=== PATIENT | male | born 1985 | race Caucasian/White ===

== ENCOUNTER 2020-05-27 02:05 | Emergency (ER) | payer BC, SELFPAY ==
[2020-05-27 02:07] VITALS: BP 125/82; PULSE 106; RESP 16; TEMP 36.9; O2SAT 96; BMI 23.7
--- NOTE | 2020-05-27 02:25 | HMH.EDGENADL ---
ED Disposition Clinical Impression: Medical clearance for incarceration Disposition: Home, Self-Care Condition on Discharge: Good Referrals: PCP,No [Primary Care Provider] - - Critical Care Critical Care Time: No Attestation: On , the high probability of a clinically significant, sudden or life threatening deterioration of the following system(s) required my full and direct attention, intervention and personal management. The time I documented below is in addition to time spent performing reported procedures but includes the following listed in this critical care notation. Medical Decision Making - Medical Records Medical records reviewed: Yes: I reviewed the patient's medical records. - Eric Inquiry Pt receiving controlled substance: No Vital Signs: 05/27/20 02:07 Temperature 98.5 F Temperature Source Oral Pulse Rate [Left Radial] 106 H Respiratory Rate 16 Blood Pressure [Right Arm] 125/82 Blood Pressure Mean [Right Arm] 96 Blood Pressure Source [Right Arm] Automatic Cuff Blood Pressure Position [Right Arm] Sitting 02 Sat by Pulse Oximetry 96 Oxygen Delivery Method Room Air Medical Decision Narrative: Patient is a 34-year-old male with a history of IV drug use who presents the emergency department today for medical clearance after being arrested. Ambulatory on his leg. Reassuring exam. Vital signs appropriate. Overall exam well-appearing. No indication for imaging or labs. Cleared for long-term. General Adult HPI - General Chief complaint: Medical Clearance Stated complaint: Medical Clearance Time Seen by Provider: 05/27/20 02:25 Mode of Arrival: Ambulatory Limitations: No Limitations Description of Symptoms (Recalled from ER Triage Doc. by RN): pt brought in for medical clearence. pt complains of left twisted leg and stated he feels like he has a fever. pt reports using heroine a couple hours ago - History of Present Illness HPI narrative: Patient has history of heroin use, hep C. Patient did heroin recently and was then about to be arrested. He ran from the police and was tased. Fell on his left side. Then told the police he had had a fever off and on for several days. Patient also complained of left leg pain that he fell on. Patient walked into the emergency department without a limp. - Related Data Home Medications Medication Instructions Recorded Confirmed No Known Home Medications 08/02/18 10/13/18 Allergies Allergy/AdvReac Type Severity Reaction Status Date / Time No Known Allergies Allergy Verified 08/02/18 01:17 [facility] History - Hepatitis A Screen Drug use history?: Yes High risk sexual behaviors?: No History of sexually transmitted infection?: No Currently employed?: No Childcare worker?: No Do you have indoor plumbing?: Yes Do you have electricity?: Yes Attestation statement:: This patient has been screened for Hepatitis A risk factors. Medical History: Denies:: Cancer, Diabetes Mellitus Type 1, Diabetes Mellitus Type 2, MRSA Amputation: No - Social History Smoking Status: Current every day smoker Tobacco Type: cigarettes # Packs/Day (cigarettes): 1 Alcohol Intake: never Substance Use Type: heroin, methamphetamine Occupational Status: unemployed ROS Obtained: No All systems reviewed & no additional complaints Physical Exam - General General appearance: alert, in no apparent distress - Respiratory Respiratory exam: Present: normal lung sounds bilaterally. Absent: respiratory distress - Cardiovascular Cardiovascular exam: Present: regular rate, normal rhythm. Absent: JVD - Abdominal Exam Abdominal exam: Present: soft, normal bowel sounds. Absent: distention, tenderness, guarding - Extremities Exam Extremities exam: Present: other (Hyperalgesia over the left thigh.) - Neurological Exam Neurological exam: Present: alert, oriented X3
[2020-05-27 02:38] VITALS: BP 127/82; PULSE 111; RESP 16; TEMP 36.9; O2SAT 98
== END 2020-05-27 02:39 | disposition home or self-care (01) ==
PROVIDERS: Emergency Provider Emergency Medicine
DX: M79.605 Pain in left leg (principal); F19.10 Other psychoactive substance abuse, uncomplicated
CPT/HCPCS: 99282

== ENCOUNTER 2021-01-20 21:50 | Emergency (ER) | payer BC, SELFPAY ==
[2021-01-20 21:56] VITALS: BP 130/72; PULSE 85; RESP 16; TEMP 36.6; O2SAT 97; BMI 26.0
[2021-01-20 22:00] VITALS: BP 127/74; PULSE 83; O2SAT 96
[2021-01-20 22:30] VITALS: BP 129/67; PULSE 80; O2SAT 97
--- NOTE | 2021-01-20 22:47 | CT_ITS ---
PROCEDURE INFORMATION: Exam: CT Orbits Without Contrast Exam date and time: 01/20/2021 10:47 PM Age: 35 years old Clinical indication: Injury or trauma; Puncture; Orbit/periorbital; With residual foreign body; Patient HX: Metallic foreign body to left eye, ; additional info: Metal, foreign body TECHNIQUE: Imaging protocol: Computed tomography images of the orbits without contrast. Radiation optimization: All CT scans at this facility use at least one of these dose optimization techniques: automated exposure control; mA and/or kV adjustment per patient size (includes targeted exams where dose is matched to clinical indication); or iterative reconstruction. COMPARISON: No relevant prior studies available. FINDINGS: Orbital cavity: Orbits are normal. Globes are unremarkable. Paranasal sinuses: There are mucous retention cysts in bilateral maxillary sinus No air-fluid levels. Bones/joints: No acute fracture. Soft tissues: No significant facial soft tissue swelling. IMPRESSION: No acute findings. No radiopaque foreign body within the orbits .
--- NOTE | 2021-01-20 22:48 | HMH.EDGENADL ---
ED Disposition Clinical Impression: Corneal rust ring of left eye Corneal abrasion, left Qualifiers: Encounter type: initial encounter Qualified Code(s): S05.02XA - Injury of conjunctiva and corneal abrasion without foreign body, left eye, initial encounter Disposition: Home, Self-Care Condition on Discharge: Fair Instructions: DI for Corneal Foreign Body-Eye, DI for Corneal Abrasion Additional Instructions: You have been evaluated for orbital foreign body, metal. Diagnosed with a corneal abrasion and rust ring. Please call [facility] first thing in the morning for close follow-up. . Use erythromycin ointment. Take anti-inflammatories, ibuprofen or Motrin for pain. Return to the emergency department at once for any new or worsening symptoms, vision changes or other concerns. Prescriptions: Erythromycin Base [Erythromycin 1gm opth ointment] 1 gm OP QID 5 Days #20 oint...g. Transmission Status: Pending to [id number] Referrals: Hunter Paul [Primary Care Provider] - Time of Disposition: 00:46 - Critical Care Critical Care Time: No Attestation: On 01/20/21, the high probability of a clinically significant, sudden or life threatening deterioration of the following system(s) required my full and direct attention, intervention and personal management. The time I documented below is in addition to time spent performing reported procedures but includes the following listed in this critical care notation. Medical Decision Making - Medical Records Medical records reviewed: Yes: I reviewed the patient's medical records. - Eric Inquiry Pt receiving controlled substance: No Vital Signs: 01/20/21 21:56 01/20/21 22:00 01/20/21 22:30 Temperature 97.8 F Temperature Source Oral Pulse Rate 83 80 Pulse Rate [Left Brachial] 85 Respiratory Rate 16 Blood Pressure 127/74 129/67 Blood Pressure [Right Arm] 130/72 Blood Pressure Mean [Right Arm] 91 Blood Pressure Source [Right Arm] Automatic Cuff 02 Sat by Pulse Oximetry 97 96 97 Oxygen Delivery Method Room Air 01/20/21 23:00 01/20/21 23:30 01/21/21 00:00 Temperature Temperature Source Pulse Rate 80 64 72 Pulse Rate [Left Brachial] Respiratory Rate Blood Pressure 124/70 106/71 L 119/68 Blood Pressure [Right Arm] Blood Pressure Mean [Right Arm] Blood Pressure Source [Right Arm] 02 Sat by Pulse Oximetry 96 100 92 L Oxygen Delivery Method - CT Data CT Scan: Other Time Received: 00:[address] Reviewed: Yes: I have reviewed the patient's CT results, I have viewed the radiologist's interpretation Preliminary Findings: Normal/NAD Findings Narrative: CT orbits FINDINGS: Orbital cavity: Orbits are normal. Globes are unremarkable. Paranasal sinuses: There are mucous retention cysts in bilateral maxillary sinus No air-fluid levels. Bones/joints: No acute fracture. Soft tissues: No significant facial soft tissue swelling. IMPRESSION: No acute findings. No radiopaque foreign body within the orbits Medical Decision Narrative: In summary this is a 35-year-old male presenting to the emergency department with foreign body sensation in the left eye. Patient clinically stable on arrival. Vital signs within normal limits. He has 2 obvious metallic foreign bodies present on the front of the eye. Concern for metal and rest. Tetracaine instilled. Patient had significant improvement in his pain. 1 metal foreign body able to be removed with a cotton tip applicator. The other one required a small needle. There is a rust ring. Left eye irrigated copiously. Erythromycin ointment applied. Patient instructed to call [facility] first thing in the morning. He needs follow-up within 24 to 48 hours. Patient expressed understanding. Stable for discharge. General Adult HPI - General Chief complaint: Eye Problems Stated complaint: AO 01/20 1000 FB in Left eye Time Seen by Provider:
[2021-01-20 23:00] VITALS: BP 124/70; PULSE 80; O2SAT 96
[2021-01-20 23:30] VITALS: BP 106/71; PULSE 64; O2SAT 100
[2021-01-21] VITALS: BP 119/68; PULSE 72; O2SAT 92
[2021-01-21 00:59] VITALS: BP 119/68; PULSE 72; RESP 16; TEMP 36.6; O2SAT 100
== END 2021-01-21 01:00 | disposition home or self-care (01) ==
PROVIDERS: Emergency Provider Emergency Medicine; PCP Pediatrics
DX: T15.02XA Foreign body in cornea, left eye, initial encounter (principal); T15.12XA Foreign body in conjunctival sac, left eye, initial encounter; W22.8XXA Striking against or struck by other objects, initial encounter; Y92.89 Other specified places as the place of occurrence of the external cause
CPT/HCPCS: 65205; 70480; 99282

== ENCOUNTER 2021-07-05 13:41 | Emergency (ER) | payer BC, SELFPAY ==
[2021-07-05 13:55] VITALS: BP 148/89; PULSE 101; RESP 19; TEMP 37.1; O2SAT 99; BMI 26.0
--- NOTE | 2021-07-05 14:46 | HMH.EDUTC ---
[facility] [place] Clinical Impression: Viral syndrome Pharyngitis Qualifiers: Pharyngitis/tonsillitis etiology: unspecified etiology Qualified Code(s): J02.9 - Acute pharyngitis, unspecified Disposition: Home, Self-Care Condition on Discharge: Good Instructions: DI for Viral Syndrome Additional Instructions: Drink plenty of fluids. Take tylenol or ibuprofen for pain or fever. Take the medications as directed. Follow up with your regular doctor. GO TO THE ER FOR ANY WORSENING SYMPTOMS Prescriptions: Azithromycin [Z-Nahid 250mg Tab*] 250 mg PO UD DOSE PK #6 tab Transmission Status: Received by [id number] Referrals: Provider,Referral, [Primary Care Provider] - Forms: Work/School Release Time of Disposition: 14:51 Medical Decision Making - Medical Records Medical records reviewed: No: I reviewed the patient's medical records. - Eric Inquiry Pt receiving controlled substance: No Vital Signs: 07/05/21 13:55 07/05/21 14:55 Temperature 98.8 F 98.8 F Temperature Source Oral Pulse Rate 101 H Pulse Rate [Right Brachial] 101 H Respiratory Rate 19 19 Blood Pressure 148/89 H Blood Pressure [Right Arm] 148/89 H Blood Pressure Mean [Right Arm] 108 Blood Pressure Source [Right Arm] Manual Cuff/ Doppler Blood Pressure Position [Right Arm] Sitting 02 Sat by Pulse Oximetry 99 Oxygen Delivery Method Room Air - Lab Data Lab results reviewed: Yes: I reviewed the patient's lab results. [facility] [place] - General Stated complaint: sore throat, body aches, congestion Time Seen by Provider: 07/05/21 14:46 Mode of Arrival: Ambulatory Source of Information: Patient Limitations: No Limitations Description of Symptoms (Recalled from Triage Doc. by RN): PATIENT C/O FEVER, BODY ACHES, AND SORE THROAT. HE STATES HE IS FEELING BETTER AND IS NEEDING A WORK NOTE HEENT Symptoms (Recalled from RN notes): Yes Resp Symptoms (Recalled from RN notes): No Skin Symptoms (Recalled from RN notes): No MS Symptoms (Recalled from RN notes): No Functional Status (Recalled from RN notes): WNL - History of Present Illness Provider Complaint: He has been feeling bad for the past 3 days. He has had a sore throat, nausea and sinus drainage. He is feeling almost completely better, but he was too sick this morning to go to work so he needed to be tested for covid. - Related Data Previous Rx's Medication Instructions Recorded Azithromycin [Z-Nahid 250mg Tab*] 250 mg PO UD DOSE PK #6 tab 07/05/21 Allergies Allergy/AdvReac Type Severity Reaction Status Date / Time No Known Allergies Allergy Verified 08/02/18 01:17 - Worker's Comp Is this a Worker's Comp case?: No [facility] History - Hepatitis A Screen Drug use history?: No High risk sexual behaviors?: No History of sexually transmitted infection?: No Currently employed?: No Childcare worker?: No Do you have indoor plumbing?: Yes Do you have electricity?: Yes Attestation statement:: This patient has been screened for Hepatitis A risk factors. I have reviewed the patient's past medical history: Yes Medical History: Denies:: Cancer, Diabetes Mellitus Type 1, Diabetes Mellitus Type 2, MRSA Amputation: No - Social History Smoking Status: Current every day smoker Tobacco Type: cigarettes # Packs/Day (cigarettes): 1 Alcohol Intake: never Substance Use Type: heroin, methamphetamine Occupational Status: unemployed ROS Obtained: Yes All systems reviewed & no additional complaints - Constitutional Constitutional: Reports as per HPI - Eyes Eyes: Denies eye discharge - ENT Ears, Nose, Mouth, and Throat: Reports as per HPI - Cardiovascular Cardiovascular: Denies chest pain - Respiratory Respiratory: Denies chest congestion, Reports cough, Denies dyspnea, Denies stridor, Denies wheezing - Gastrointestinal Gastrointestingal: Reports: nausea. Denies: abdominal pain, diarrhea, vomiting - Musculoskeletal Musculoskeletal: Denies joint
[2021-07-05 14:55] VITALS: BP 148/89; PULSE 101; RESP 19; TEMP 37.1; O2SAT 99
== END 2021-07-05 14:58 | disposition home or self-care (01) ==
PROVIDERS: Emergency Provider Nurse Practitioner Family
DX: J02.9 Acute pharyngitis, unspecified (principal); B34.9 Viral infection, unspecified; F17.210 Nicotine dependence, cigarettes, uncomplicated
CPT/HCPCS: 99202; G0463

== ENCOUNTER 2022-07-04 13:43 | Emergency (ER) | payer BC, SELFPAY ==
[2022-07-04 14:08] VITALS: BP 123/60; PULSE 91; RESP 16; TEMP 36.6; O2SAT 96; BMI 25.9
[2022-07-04 15:52] VITALS: BP 0/0; PULSE 0; RESP 0; TEMP -17.7; TEMP 0
== END 2022-07-04 15:53 | disposition left against medical advice (07) ==
LOC: ER 14:11 → UTC 14:12
PROVIDERS: Emergency Provider Nurse Practitioner Family; PCP Family Medicine
DX: Z53.21 Procedure and treatment not carried out due to patient leaving prior to being seen by health care provider (principal)

== ENCOUNTER 2023-05-11 18:10 | Emergency (ER) | payer BC, SELFPAY ==
[2023-05-11 18:11] VITALS: BP 104/67; PULSE 72; RESP 16; TEMP 36.1; O2SAT 100; BMI 25.7
--- NOTE | 2023-05-11 18:30 | XR_ITS ---
PROCEDURE INFORMATION: Exam: XR Left Knee Exam date and time: 05/11/2023 6:26 PM Age: 37 years old Clinical indication: Injury or trauma; Fall; Blunt trauma; Knee; Left; Additional info: Fall, pain TECHNIQUE: Imaging protocol: Radiologic exam of the left knee. Views: 3 views. COMPARISON: No relevant prior studies available. FINDINGS: Bones/joints: Normal. Soft tissues: Normal. IMPRESSION: No acute findings.
--- NOTE | 2023-05-11 18:30 | XR_ITS ---
PROCEDURE INFORMATION: Exam: XR Left Ankle Exam date and time: 05/11/2023 6:28 PM Age: 37 years old Clinical indication: Injury or trauma; Fall; Blunt trauma; Ankle; Left; Additional info: Fall, injury TECHNIQUE: Imaging protocol: Radiologic exam of the left ankle. Views: 3 or more views. COMPARISON: CR XR KNEE LT 3V 05/11/2023 6:26 PM FINDINGS: Bones/joints: Normal. Soft tissues: Normal. IMPRESSION: No acute findings.
--- NOTE | 2023-05-11 18:39 | XR_ITS ---
PROCEDURE INFORMATION: Exam: XR Left Tibia and Fibula Exam date and time: 05/11/2023 6:35 PM Age: 37 years old Clinical indication: Injury or trauma; Fall; Blunt trauma; Lower leg; Left; Additional info: Tibiotalar joint pain TECHNIQUE: Imaging protocol: Radiologic exam of the left tibia and fibula. Views: 2 views. COMPARISON: CR XR FOOT LT MIN 3V 05/11/2023 6:34 PM FINDINGS: Bones/joints: Normal. Soft tissues: Normal. IMPRESSION: No acute findings.
--- NOTE | 2023-05-11 18:39 | XR_ITS ---
PROCEDURE INFORMATION: Exam: XR Left Foot Exam date and time: 05/11/2023 6:34 PM Age: 37 years old Clinical indication: Injury or trauma; Fall; Blunt trauma; Foot; Left; Additional info: Tibiotalar joiint pain TECHNIQUE: Imaging protocol: Radiologic exam of the left foot. Views: 3 or more views. COMPARISON: CR XR ANKLE LT MIN 3V 05/11/2023 6:28 PM FINDINGS: Bones/joints: Normal. Soft tissues: Normal. IMPRESSION: No acute findings.
--- NOTE | 2023-05-11 18:46 | HMH.EDGENADL ---
Discharge Plan Disposition Patient Disposition: Home, Self-Care Prescriptions Prescriptions: No Action azithromycin 250 MG tablet 250 mg PO UD DOSE PK Qty: 6 0RF Rx Instructions: Take two (2) tablets today, then one (1) tablet days #2 thru #5 Referrals Follow up/Referrals: Provider,Referral, [Primary Care Provider] - See instructions Activity Restrictions/Add. Instructions Additional Instructions/Restrictions: Call your family doctor to establish care for this visit to the emergency department and schedule follow-up within 48 hours to ensure improvement. If you have any worsening of your condition or any other concerning signs or symptoms, return to the emergency department or your primary care doctor for further evaluation. Take Tylenol 1000 mg every 6 hours (4 times daily) and ibuprofen 400 mg every 6 hours (4 times daily) as needed with food and water to prevent GI upset and kidney damage. Clinical Impressions Clinical Impression: Ankle sprain, Knee sprain Discharge ED Provider: Ronnie Kennedy General Adult HPI General Chief complaint: PAIN Stated complaint: AO 05/11 fall, left foot and knee pain Time Seen by Provider: 05/11/23 18:15 Mode of Arrival: Wheelchair Limitations: No Limitations Description of Symptoms (Recalled from ER Triage Doc. by RN): Pt c/o L ankle pain and L knee pain. Pt reports fall approx 3-4 feet from a step ladder while trying to get down. Pt reports his foot turned backwards and his knee popped . Pt reports he thinks his knee popped out of place. + pms. History of Present Illness HPI narrative: 37-year-old male no relevant medical history presenting with left knee and ankle pain. Patient states he stepped incorrectly off a stepladder and turned his foot backward. His knee popped. He has been trying to bear weight, but has significant pain with bearing weight since that time. Vomiting secondary to pain intolerance. No deformity, numbness, weakness, tingling, or any outward signs of injury. No other injury sustained. Related Data Previous Rx's Medication Instructions Recorded azithromycin 250 mg tablet 250 mg PO UD DOSE PK #6 tabs 07/05/21 Allergies Allergy/AdvReac Type Severity Reaction Status Date / Time No Known Allergies Allergy Verified 08/02/18 01:17 [facility] Disclaimer: The information contained in this section may have been updated after the patient was seen, as this information can be updated by other users. Social History Smoking Status: Current every day smoker tobacco type: cigarettes packs per day: 1 alcohol intake: never substance use type: heroin and methamphetamine current occupational status: unemployed Travel in the last 8 weeks: None ROS Obtained: Yes All systems reviewed & no additional complaints except as documented Physical Exam General General appearance: alert and in no apparent distress Head Head exam: atraumatic and normocephalic Eye Eye exam: Present normal appearance, PERRL and EOMI ENT ENT exam: Present mucous membranes moist Neck Neck exam: Present normal inspection, full ROM and trachea midline Respiratory Respiratory exam: Absent respiratory distress, wheezes, stridor, accessory muscle use or prolonged expiratory phase Cardiovascular Cardiovascular exam: Present normal rhythm Abdominal Exam Abdominal exam: Present soft; Absent distention, tenderness, guarding, rebound, rigidity or normal bowel sounds Extremities Exam Extremities exam: Present other (Left lower extremity structurally intact including ACL, PCL, MCL, LCL, patellar ligament and tendon. No evidence of effusion. Maximal tenderness proximal tibia and joint space medially. Patient also has tenderness medial malleolus and talus. No outward signs of injury); Absent edema Neurological Exam Neurological exam: Present alert, oriented X3, CN II-XII intact and normal gait; Absent motor sensory deficit Skin Skin exam: Present warm and dry; Absent dionicio
[2023-05-11 19:26] VITALS: BP 110/78; PULSE 79; RESP 16; TEMP 36.7; O2SAT 100
== END 2023-05-11 19:38 | disposition home or self-care (01) ==
PROVIDERS: Emergency Provider Emergency Medicine
DX: S93.402A Sprain of unspecified ligament of left ankle, initial encounter (principal); S83.92XA Sprain of unspecified site of left knee, initial encounter; R11.2 Nausea with vomiting, unspecified; F17.210 Nicotine dependence, cigarettes, uncomplicated; W11.XXXA Fall on and from ladder, initial encounter
CPT/HCPCS: 73562; 73590; 73610; 73630; 96372; 99284

== ENCOUNTER 2024-10-06 21:28 | Emergency (ER) | payer MEDICAID, SELFPAY ==
[2024-10-06 21:52] VITALS: BP 118/71; PULSE 104; RESP 20; TEMP 37.6; O2SAT 100; BMI 26.0
--- NOTE | 2024-10-06 22:09 | CT_ITS ---
PROCEDURE INFORMATION: Exam: CT Left Upper Extremity With Contrast, Forearm Exam date and time: 10/06/2024 10:35 PM Age: 38 years old Clinical indication: Pain; Lower or forearm; Left; Spider bite; Additional info: Concern for deep abscess TECHNIQUE: Imaging protocol: Computed tomography of the left upper extremity with contrast. Exam focused on the forearm. Radiation optimization: All CT scans at this facility use at least one of these dose optimization techniques: automated exposure control; mA and/or kV adjustment per patient size (includes targeted exams where dose is matched to clinical indication); or iterative reconstruction. Contrast material: ISOVUE; Contrast volume: 75 ml; Contrast route: IV; COMPARISON: No relevant prior studies available. FINDINGS: Bones/joints: The osseous structures are normal. Soft tissues: There is a subcutaneous abscess of the mid to distal forearm dorsomedially with overlying contour abnormality of the skin surface. The abscess measures approximately 19 x 13 x 24 mm. Diffuse subcutaneous edema is noted throughout the forearm extending distally into the hand and proximally into the upper arm. No focal underlying muscular abnormality is evident. IMPRESSION: Focal subcutaneous abscess of the dorsomedial mid to distal forearm measuring approximately 19 x 13 x 24 mm. Diffuse subcutaneous edema of the forearm.
[2024-10-06 22:12] LABS: Albumin Level 4.3 g/dl (3.5-5.0); Chloride 103 mmol/L (98-107); Potassium 3.5 mmoL/L (3.5-5.1); Sodium 138 mmol/L (136-145)
[2024-10-06 22:15] LABS: Alanine Aminotransferase 21 U/L (12-78); Albumin/Globulin Ratio 1.5 (1.1-1.8); Alkaline Phosphatase 70 U/L (38-126); Anion Gap 9.5 mEq/L (5-15); Aspartate Amino Transferase 25 U/L (17-59); Bilirubin,Total 0.6 mg/dl (0.2-1.3); Blood Urea Nitrogen 16 mg/dl (9-20); Calcium 8.7 mg/dl (8.4-10.2); Carbon Dioxide 29 mmol/L (22.0-30.0); Creatine Kinase 164 U/L (55-170); Creatinine Clearance Estimated 111 mL/min (50-200); Estimated Glomerular Filt Rate 76 ml/min (>60); GFR (African American) 92 ML/MIN (>60); Globulin 2.9 g/dL (1.3-3.2); Glucose 100 mg/dl (74-100); Lactic Acid 1.5 mmol/L (0.7-2.1); Total Protein,Serum 7.2 g/dl (6.3-8.2)
--- NOTE | 2024-10-06 22:17 | HMH.EDGENADL ---
Discharge Plan Disposition Patient Disposition: Admitted Chief Complaint: Skin/Abscess/Foreign Body Prescriptions Prescriptions: No Action azithromycin 250 MG tablet 250 mg PO UD DOSE PK Qty: 6 0RF Rx Instructions: Take two (2) tablets today, then one (1) tablet days #2 thru #5 Referrals Follow up/Referrals: Provider,Referral, [Primary Care Provider] - See instructions Clinical Impressions Clinical Impression: Cellulitis and abscess of upper arm and forearm Instructions Patient Instructions: DI for Skin Abscess Print Language Print Language: Indonesian Discharge ED Provider: Ronnie Kennedy General Adult HPI General Chief complaint: Skin/Abscess/Foreign Body Stated complaint: ? spider bite 3 days ago left forearm Time Seen by Provider: 10/06/24 21:32 Mode of Arrival: Ambulatory Source of Information: Patient Description of Symptoms (Recalled from ER Triage Doc. by RN): Pt to ED with c/o spider bite to left forearm. Pt reports he was bit Thursday, and at the time was a small bump on his arm. Since thursday, the bump has grown and left arm is warm, red, and swollen to the upper arm. Pus noted. Pt reports he lanced the potential abcess at 0000 last night, and a large amount of pus came out. History of Present Illness HPI narrative: Please note that above description of symptoms, in this electronic medical record under categorization of recalled from ER triage doctor by RN are reflective of an initial nursing assessment, however, is not reflective of my full history and physical exam that was personally taken and clarified. Consequentially, this preceding description of symptoms, which may include the patient's categorized chief complaint in the EMR, do not reflect my personal clinical impression, and the ultimate description of history of present illness and patient stated complaints should be deferred to this section of the note. Unless stated otherwise or congruent with this section of the note, additional signs, symptoms, or incongruence should be interpreted as inaccurate with my clinical impression. Related Data Previous Rx's ?Medication ?Instructions ?Recorded azithromycin 250 mg tablet 250 mg PO UD DOSE PK #6 tabs 07/05/21 Allergies Allergy/AdvReac Type Severity Reaction Status Date / Time No Known Allergies Allergy Verified 08/02/18 01:17 [facility] Disclaimer: The information contained in this section may have been updated after the patient was seen, as this information can be updated by other users. Social History Smoking Status: Current every day smoker tobacco type: cigarettes packs per day: 1 alcohol intake: never substance use type: heroin and methamphetamine current occupational status: unemployed Travel in the last 8 weeks: None Have you lived/traveled outside [place] in past 30 days?: No Contact w/someone who lives/traveled outside [place] past 30 days?: No Exposure to someone with infectious disease in past 14 days?: No Do you have a fever (greater than 100.4 F or 38 C)?: No Have you tested positive for COVID-19: No Exposed to someone with COVID-19 in past 14 days?: No Do you have a sore throat?: No Do you have a cough?: No Do you have any weakness?: No Do you have any diarrhea?: No Are you experiencing any unusual bleeding?: No Do you have any muscle aches/pain?: No Do you have any abdominal pain?: No Are you experiencing loss of taste or smell?: No Other Medical History Have you received the Flu Vaccine for this season: No Have you received the Pneumonia Vaccine: No ROS Obtained: Yes All systems reviewed & no additional complaints except as documented Physical Exam General General appearance: alert Head Head exam: atraumatic and normocephalic Eye Eye exam: Present normal appearance, PERRL and EOMI Neck Neck exam: Present normal inspection, full ROM and trachea midline Respiratory Respiratory exam: Absent respiratory distress, wheezes, stridor, accessory muscle use or prolonged expiratory phase Cardiovascular Cardiovascular exam: Present other (Pulses equal symmetric in upper and lower extremities) Abdominal Exam Abdominal exam: Present soft; Absent distention, tenderness or pulsatile mass Extremities Exam Extremities exam: Present edema and other (Left forearm, patient has area of ulceration and natalia purulence. Indurated circular area about 8 cm in diameter. Erythematous, tender. Patient also has erythema and edema extending up to just proximal to the elbow and distally into the hand.) Neurological Exam Neurological exam: Present alert, oriented X3 and CN II-XII intact; Absent motor sensory deficit Skin Skin exam: Present warm and dry; Absent diaphoresis or erythema Medical Decision Making Medical Records Medical records reviewed: Yes I reviewed the patient's medical records. Screening: Per USPSTF and CDC recommendations, given the prevalence of disease in our region, it is our hospital?s policy to screen for HIV and viral Hepatitis for all patients aged 18 and over and those with ongoing risk factors. Eric Inquiry Pt receiving controlled substance: No Eric was queried for this patient: No Vital Signs: 10/06/24 21:52 Temperature 99.6 F Temperature Source Oral Pulse Rate [Left Radial] 104 H Respiratory Rate 20 Blood Pressure [Right Arm] 118/71 Blood Pressure Mean [Right Arm] 86 Blood Pressure Source [Right Arm] Automatic Cuff Blood Pressure Position [Right Arm] Sitting 02 Sat by Pulse Oximetry 100 Oxygen Delivery Method Room Air Lab Data Lab Results 10/06/24 21:56: WBC 11.5 H, RBC 4.81, Hgb 14.6, Hct 43.1, MCV 89.6, MCH 30.4, MCHC 33.9, RDW 12.1, Plt Count 272, MPV 8.7, Neut % (Auto) 75.2, Lymph % (Auto) 13.5, Beckham % (Auto) 8.4, Eos % (Auto) 2.1, Baso % (Auto) 0.5, Neut # (Auto) 8.6 H, Lymph # (Auto) 1.6, Beckham # (Auto) 1.0, Eos # (Auto) 0.2, Baso # (Auto) 0.1, Sodium 138, Potassium 3.5, Chloride 103, Carbon Dioxide 29, Anion Gap 9.5, BUN 16, Creatinine 1.10, Estimated Creat Clear 111, Estimated GFR 76, Est GFR ( Amer) 92, Glucose 100, Lactate 1.5, Calcium 8.7, Total Bilirubin 0.6, AST 25, ALT 21, Alkaline Phosphatase 70, Total Creatine Kinase 164, Total Protein 7.2, Albumin 4.3, Globulin 2.9, Albumin/Globulin Ratio 1.5 10/06/24 21:56 10/06/24 21:56 Orders (Tests/Meds): ED MEDICATIONS Generic Name Dose Route Start Last Admin Trade Name Freq PRN Reason Stop Dose Admin Vancomycin/PEG/NADA/Lysine/Water 1.5 gm in 300 mls @ 150 mls/hr 10/06/24 23:15 Vancomycin 1.5gm/300ml (Peg) Premix IV 10/07/24 01:14 ONCE ONE Miscellaneous 1 each 10/06/24 23:15 Vancomycin Consult Request NOTAPPLIC 11/05/24 23:14 [facility] Sodium Chloride 10 ml 10/06/24 22:40 10/06/24 22:41 Sodium Chloride 0.9% 10ml Syr (Rad Only) IV 11/05/24 22:39 10 ml NEEDED PRN Administration Maintain IV Site Discontinued Medications Generic Name Dose Route Start Last Admin Trade Name Sandhya PRN Reason Stop Dose Admin Acetaminophen 1,000 mg 10/06/24 22:20 10/06/24 22:24 Acetaminophen 500mg Tab PO 10/06/24 22:21 1,000 mg ONCE ONE Administration Iopamidol 75 ml 10/06/24 22:40 10/06/24 22:41 Iopamidol-370 (76%);100ml Bottle IV 10/06/24 22:41 75 ml ONCE ONE Administration Ketorolac Tromethamine 15 mg 10/06/24 22:20 10/06/24 22:25 Ketorolac 30mg/Ml Vial IV 10/06/24 22:21 15 mg ONCE ONE Administration ORDERS Category Date Time Status CT forearm LT w con Stat Cat Scan 10/06/24 22:09 Taken POCUS Point of Care (ER Only) Stat Exams 10/06/24 22:01 Completed CBC w/Auto Diff [Complete Blood Count Auto Diff] Stat Lab 10/06/24 21:56 Completed CK [Creatine Kinase] Stat Lab 10/06/24 21:56 Completed CMP [Comprehensive Metabolic Panel] Stat Lab 10/06/24 21:56 Completed HIV Combo Stat Lab 10/06/24 21:56 Received Hepatitis C Ab Qual. W/ RFX Stat Lab 10/06/24 21:56 Received Lactic Acid Stat Lab 10/06/24 21:56 Completed Blood Culture Stat Micro 10/06/24 21:56 Received Medical Decision Narrative: 38-year-old male presenting with left upper extremity spider bite. He states that it started 3 days prior to this. Around midnight today, 10/06, used a scalpel to adelia it and had natalia purulence that he stated filled up my other hand. No fevers or chills, but the redness and tenderness has been extending up his arm and distally to his hand. States that he had MRSA infections in the past and needed IV vancomycin and this seems similar. Denies any history of IV drug use. History was obtained via conversation with patient. On arrival, patient hemodynamically stable, alert, oriented x4, appropriate, GCS 15, moving all extremities spontaneously, pupils equal and reactive to light. Full physical exam performed and significant for erythematous left upper extremity with central area of swelling consistent with frontal versus lanced abscess. Natalia purulence at this area. Does have large area of concentric erythema and induration around this as well as erythema extending up the arm to the elbow and down into the hand. Neurovascularly intact. Compartments are tight, but no pain with passive range of motion of distal muscle groups. Differential includes cellulitis, abscess, myositis, sepsis, compartment syndrome, among others. Patient placed on continuous cardiac monitoring and continuous pulse ox with initial blood pressure 118/71, heart rate 104, saturation 100% on room air. Patient was given Toradol and acetaminophen for symptomatic management and correction of underlying abnormalities. Workup independently interpreted and significant for leukocytosis with neutrophilia. Nonactionable chemistry. CK negative. Bedside [id number] ultrasound performed, no discernible drainable abscess, but he does have mixed echogenicity of the muscle groups consistent with early myositis edema above the fascial planes. CT scan ordered to further evaluate. On independent interpretation of imaging, patient has soft tissue swelling, edema, infection, localized abscess that is communicating with the skin consistent with physical exam. No evidence of deep space infection. See radiology read for full review of final results. On reevaluation, patient resting comfortably. Vancomycin and Zosyn ordered. Hospital medicine contacted and case was discussed at length, patient be admitted for significant skin and soft tissue injury upper extremity. Given patient presentation, workup, history, this most likely represents MRSA abscess and cellulitis left upper extremity. Because patient high risk for clinical decompensation, deemed appropriate for inpatient admission. Results were relayed to patient who voiced understanding and patient was agreeable to inpatient admission and management. Patient was admitted to the hospital for further definitive management. Se[employer] Stay Stitcher disclaimer Much of this encounter note is an electronic sales development representative spoken language to printed text. Electronic sales development representative of the spoken language may permit errors. Although I have reviewed the note, some errors may still exist. Critical Care Critical Care Time Critical Care Time: No
[2024-10-06 22:21] LABS: Basophils # 0.1 K/mm3 (0-0.2); Basophils % 0.5 % (0.1-2.0); Eosinophils # 0.2 K/mm3 (0.0-0.4); Eosinophils % 2.1 % (0.1-12.0); Hematocrit 43.1 % (42.0-52.0); Hemoglobin 14.6 g/dL (14.1-18.0); Lymphocytes # 1.6 K/mm3 (0.7-4.5); Lymphocytes % 13.5 % (10-50); Mean Corpuscular HGB Conc 33.9 g/dL (31.8-35.4); Mean Corpuscular Hemoglobin 30.4 pg (27.0-31.2); Mean Corpuscular Volume 89.6 fl (80-94); Mean Platelet Volume 8.7 fl (7.4-10.4); Monocytes % 8.4 % (1.7-9.3); Neutrophils # 8.6 K/mm3 (1.8-7.8); Neutrophils % 75.2 % (37.0-80.0); Platelet Count 272 K/mm3 (142-424); Red Blood Count 4.81 M/mm3 (4.60-6.20); Red Cell Distribution Width 12.1 % (11.5-17.5); White Blood Count 11.5 K/mm3 (4.8-10.8)
[2024-10-06] MEDS: ACETAMINOPHEN 500MG TAB 1000 MG PO (22:24)
[2024-10-06] MEDS: KETOROLAC 30MG/ML VIAL 15 MG IV (22:25)
[2024-10-06] MEDS: IOPAMIDOL-370 (76%);100ML BOTTLE 75 ML IV (22:41)
[2024-10-06] MEDS: SODIUM CHLORIDE 0.9% 10ML SYR (RAD ONLY) 10 ML IV (22:41)
[2024-10-06 23:01] VITALS: BP 127/79; PULSE 97; O2SAT 98
[2024-10-06 23:24] LABS: HIV Combo NEGATIVE (Negative)
--- NOTE | 2024-10-06 23:24 | PC.NURSE ---
Vanc verified with Paolo Pa
--- NOTE | 2024-10-06 23:27 | PC.NURSE ---
Per Romeo RAMAN , pt refuses admission.
[2024-10-06 23:29] LABS: Hepatitis C Ab Qual. W/ RFX REACTIVE (Negative)
[2024-10-06 23:30] VITALS: BP 121/82; PULSE 85; O2SAT 97
[2024-10-06] MEDS: DALBAVANCIN HCL 1,500 MG in DEXTROSE 5 % IN WATER 250 ML 500 MG IV (23:34)
--- NOTE | 2024-10-06 23:55 | PC.NURSE ---
wound cleaned and dressed at this time.
[2024-10-07 00:53] VITALS: BP 125/77; PULSE 87; RESP 20; TEMP 36.7; O2SAT 97
--- NOTE | 2024-10-07 16:40 | PEERSUPPORT ---
Peer Support Note Patient Information Patient Information: 10/07/2024 Ps made phone call to pt offering recovery support. No answer, phone continues to only ring with no option of voicemail.
== END 2024-10-07 00:54 | disposition home or self-care (01) ==
PROVIDERS: Nurse Practitioner; Emergency Provider Emergency Medicine
DX: L03.114 Cellulitis of left upper limb (principal); L02.414 Cutaneous abscess of left upper limb; R22.32 Localized swelling, mass and lump, left upper limb; F17.210 Nicotine dependence, cigarettes, uncomplicated
CPT/HCPCS: 73201; 80053; 82550; 83605; 85025; 86803; 87040; 87389; 87522; 96365; 96374; 99285; J0875; J1885; J7060; Q9967